=== PATIENT | female | born 1985 | race Two or more races ===

== ENCOUNTER 2023-09-28 10:04 | Inpatient (IN) | payer OTHER ==
[2023-09-28] MEDS ORDERED: SODIUM CHLORIDE 500 ML IV SCH ×2 (10:20→10:50)
[2023-09-28 11:45] LABS: BASO % 0.3 % (0-2.0); EOS % 0.1 % (0-4.5); HEMATOCRIT 36.4 % (32.4-45.2); HEMOGLOBIN 11.8 GM/dL (10.7-15.3); LYMPH % 6.3 % (8-40); MCH 29.3 pg (25.7-33.7); MCHC 32.4 g/dl (32.0-36.0); MEAN CELL VOLUME 90.4 fl (80-96); MEAN PLT VOLUME 9.1 fl (7.5-11.1); MONO % 6.5 % (3.8-10.2); NEUT % 86.8 % (42.8-82.8); PLATELET COUNT 308 10^3/uL (134-434); RBC 4.03 M/mm3 (3.60-5.2); RDW 15.8 % (11.6-15.6); WHITE BLOOD COUNT 12.3 K/mm3 (4.0-10.0)
[2023-09-28 11:53] LABS: INR 1.07 (0.83-1.09); PROTHROMBIN TIME (PATIENT) 12.4 SEC (9.7-13.0)
[2023-09-28 11:56] LABS: ACTIVATED PTT 29.9 SECONDS (25.2-36.5)
[2023-09-28 12:10] LABS: POTASSIUM 3.8 mmol/L (3.5-5.1)
[2023-09-28] MEDS ORDERED: TERBUTALINE SULFATE 1 MG/1 ML VIAL SQ ONE ×4 (12:10→13:45)
[2023-09-28 12:13] LABS: BLOOD UREA NITROGEN 3.8 mg/dL (7-18); CALCIUM 9.1 mg/dL (8.5-10.1)
[2023-09-28 12:16] LABS: CREATININE 0.5 mg/dL (0.55-1.3)
[2023-09-28 12:18] LABS: BILIRUBIN,TOTAL 0.8 mg/dL (0.2-1); TOT PROT 7.7 g/dl (6.4-8.2)
[2023-09-28] MEDS: MAGNESIUM SULFATE 20GM/500ML - 20 GM/500 ML INFUS.BAG IVPB SCH ×2 (14:00→23:30)
[2023-09-28] MEDS: DEXTROSE 5%-LACTATED RINGERS 1,000 ML IV SCH (14:00)
[2023-09-28] MEDS ORDERED: MAGNESIUM SULFATE 20GM/500ML - 20 GM/500 ML INFUS.BAG ONE ×2 (14:01→23:35)
[2023-09-28] MEDS ORDERED: PENICILLIN G POTASSIUM 20,000,000 (20Mm) UNITS VIAL IVPB ONE (14:02)
[2023-09-28] MEDS ORDERED: MAGNESIUM 4GM/H20 - 4 GM/100 ML IVPB IVPB SCH (14:15)
[2023-09-28] MEDS ORDERED: PENICILLIN G POTASSIUM 5,000,000 UNIT/250 ML BAG IVPB ONE (14:15)
[2023-09-28 14:21] LABS: POC NITRAZINE POS
[2023-09-28] MEDS ORDERED: PENICILLIN G POTASSIUM 5,000,000 PRE-DOCK IN NS 250 ML IVPB ONE (14:30)
[2023-09-28 15:21] VITALS: BMI 39.0
[2023-09-28] MEDS ORDERED: BETAMET ACET/BETAMET NA PH 30 MG/5 ML VIAL IM ONE (16:32)
[2023-09-28 16:42] LABS: EPI CELLS 7 /uL (0-25.1); HYALINE CASTS 0 /uL (0-3.1); PH,URINE 6.5 (5.0-8.0); URINE APPEARANCE CLEAR; URINE BACTERIA 2 /uL (0-1359); URINE BILIRUBIN NEGATIVE (NEGATIVE); URINE COLOR YELLOW; URINE GLUCOSE (UA) NEGATIVE (NEGATIVE); URINE KETONE 3+ (NEGATIVE); URINE LEUK ESTERASE NEGATIVE (NEGATIVE); URINE NITRITE NEGATIVE (NEGATIVE); URINE PROTEIN 1+ (NEGATIVE); URINE RBC 51 /uL (0-23.9); URINE WBC 6 /uL (0-25.8)
[2023-09-28] MEDS ORDERED: BETAMET ACET/BETAMET NA PH 30 MG/5 ML VIAL ONE (16:42)
[2023-09-28] MEDS: PENICILLIN G POTASSIUM 2,500,000 UNIT in SODIUM CHLORIDE 100 ML IVPB SCH ×2 (20:35→23:35)
[2023-09-29] MEDS: PENICILLIN G POTASSIUM 2,500,000 UNIT in SODIUM CHLORIDE 100 ML IVPB SCH ×4 (03:00→16:16)
[2023-09-29] MEDS ORDERED: amLODIPine BESYLATE 10 MG TABLET (FP) PO SCH (10:00)
[2023-09-29] MEDS ORDERED: MAGNESIUM SULFATE 20GM/500ML - 20 GM/500 ML INFUS.BAG ONE (10:13)
[2023-09-29] MEDS: MAGNESIUM SULFATE 20GM/500ML - 20 GM/500 ML INFUS.BAG IVPB SCH (12:45)
[2023-09-29 14:20] LABS: POC NITRAZINE NEG
[2023-09-29] MEDS ORDERED: NIFEdipine 10 MG CAPSULE (FP) PO SCH (16:00)
[2023-09-29] MEDS ORDERED: NIFEdipine 10 MG CAPSULE (FP) ONE (16:12)
[2023-09-29] MEDS: BETAMET ACET/BETAMET NA PH 30 MG/5 ML VIAL IM SCH ×2 (17:05→17:46)
[2023-09-29] MEDS: DEXTROSE 5%-LACTATED RINGERS 1,000 ML IV SCH (17:07)
[2023-09-29] MEDS: NIFEdipine 10 MG CAPSULE (FP) PO SCH (23:19)
[2023-09-30 02:07] VITALS: RESP 18
[2023-09-30] MEDS: NIFEdipine 10 MG CAPSULE (FP) PO SCH (09:30)
[2023-09-30 11:17] VITALS: BP 126/64; PULSE 93; TEMP 98.7
== END 2023-09-30 14:00 | disposition home or self-care (01) | DRG 831 ==
LOC: JDEL 10:04 → JLDR 13:45 → J3W 09-29 17:45
PROVIDERS: ADMIT Obstetrics & Gynecology Maternal & Fetal Medicine; ATTEND Obstetrics & Gynecology Maternal & Fetal Medicine
DX: O60.02 Preterm labor without delivery, second trimester (principal); O34.32 Maternal care for cervical incompetence, second trimester; O10.912 Unspecified pre-existing hypertension complicating pregnancy, second trimester; Z3A.27 27 weeks gestation of pregnancy
CPT/HCPCS: 36415; 59025; 80053; 81003; 83986-QW; 85025; 85610; 85730; 86780; 86850; 86900; 86901; 87081; 87086; 87491; 87591; 94660; 96372

== ENCOUNTER 2023-11-28 08:40 | Inpatient (IN) | payer OTHER ==
[2023-11-28] MEDS ORDERED: TERBUTALINE SULFATE 1 MG/1 ML VIAL SQ ONE (09:19)
[2023-11-28] MEDS: TERBUTALINE SULFATE 1 MG/1 ML VIAL SQ ONE (09:23)
[2023-11-28] MEDS: DEXTROSE 5%-LACTATED RINGERS 1,000 ML IV SCH (10:00)
[2023-11-28] MEDS ORDERED: FENTANYL/BUPIVACAINE/NS/PF - PCEA - 50 ML DISP.SYRIN EP ONE (10:09)
[2023-11-28] MEDS: FENTANYL/BUPIVACAINE/NS/PF - PCEA - 50 ML DISP.SYRIN EP SCH (10:20)
[2023-11-28] MEDS ORDERED: NALOXONE HCL 0.4 MG/ML VIAL IVPUSH PRN (10:28)
[2023-11-28 10:33] LABS: BASO % 0.7 % (0-2.0); EOS % 0.7 % (0-4.5); HEMATOCRIT 35.8 % (32.4-45.2); HEMOGLOBIN 11.2 GM/dL (10.7-15.3); LYMPH % 12.5 % (8-40); MCH 28.2 pg (25.7-33.7); MCHC 31.3 g/dl (32.0-36.0); MEAN PLT VOLUME 9.3 fl (7.5-11.1); MONO % 7.9 % (3.8-10.2); NEUT % 78.2 % (42.8-82.8); PLATELET COUNT 269 10^3/uL (134-434); RBC 3.98 M/mm3 (3.60-5.2); RDW 16.9 % (11.6-15.6); WHITE BLOOD COUNT 13.1 K/mm3 (4.0-10.0)
[2023-11-28 10:40] LABS: INR 1.01 (0.83-1.09); PROTHROMBIN TIME (PATIENT) 11.7 SEC (9.7-13.0)
[2023-11-28 10:42] LABS: ACTIVATED PTT 27.6 SECONDS (25.2-36.5)
[2023-11-28 10:53] VITALS: BMI 42.7
[2023-11-28] MEDS ORDERED: PENICILLIN G POTASSIUM 5,000,000 UNIT/250 ML BAG IVPB ONE (10:53)
[2023-11-28] MEDS: PENICILLIN G POTASSIUM 5,000,000 PRE-DOCK IN NS 250 ML IVPB ONE (11:00)
[2023-11-28] MEDS ORDERED: NIFEdipine 10 MG CAPSULE (FP) ONE (11:07)
[2023-11-28 11:09] LABS: POTASSIUM 3.7 mmol/L (3.5-5.1)
[2023-11-28] MEDS: NIFEdipine 10 MG CAPSULE (FP) PO ONE (11:10)
[2023-11-28 11:12] LABS: ALBUMIN 2.8 g/dl (3.4-5.0); BLOOD UREA NITROGEN 6.1 mg/dL (7-18); CALCIUM 9.3 mg/dL (8.5-10.1)
[2023-11-28 11:15] LABS: CREATININE 0.5 mg/dL (0.55-1.3)
[2023-11-28 11:17] LABS: BILIRUBIN,TOTAL 0.9 mg/dL (0.2-1); TOT PROT 7.3 g/dl (6.4-8.2)
[2023-11-28] MEDS: SODIUM CHLORIDE 1,000 ML IV STA (11:30)
[2023-11-28] MEDS ORDERED: LIDOCAINE HCL 1% PRESERVATIVE FREE - 30ML VIAL ONE (11:43)
[2023-11-28] MEDS ORDERED: OXYTOCIN 20 UNITS in 0.9% NS 20 UNIT/1,000 ML INFUS.BAG IV ONE (11:43)
[2023-11-28 12:03] LABS: HIV INTERPRETATION NEGATIVE (NEGATIVE)
[2023-11-28] MEDS: OXYTOCIN 20 UNITS in 0.9% NS 20 UNIT/1,000 ML INFUS.BAG IV SCH (12:20)
[2023-11-28] MEDS ORDERED: BENZOCAINE 28 GM HEMORRHOIDAL OINTMENT TP PRN (12:34)
[2023-11-28] MEDS ORDERED: WITCH HAZEL 50% (TUCKS) 40 PAD/JAR PAD TP PRN (12:34)
[2023-11-28] MEDS ORDERED: NIFEdipine 10 MG CAPSULE (FP) PO SCH (14:00)
[2023-11-28] MEDS ORDERED: PENICILLIN G POTASSIUM 20,000,000 (20Mm) UNITS VIAL IVPB SCH (14:05)
[2023-11-28 14:22] LABS: CORD BASE EXCESS -7.7 mmol/L (0-2); CORD HCO3 21.7 mmHg (20-29); CORD PCO2 58.6 mmHg (30-78); CORD pH 7.187 (7.14-7.44)
[2023-11-28 14:24] LABS: CORD HCO3 22.3 mmHg (20-29); CORD PCO2 58.3 mmHg (30-78); CORD pH 7.201 (7.14-7.44)
[2023-11-28] MEDS ORDERED: PENICILLIN G POTASSIUM 2,500,000 UNIT in SODIUM CHLORIDE 100 ML IVPB SCH (15:00)
[2023-11-29] MEDS: ACETAMINOPHEN 325 MG TABLET (FP) PO PRN (01:12)
[2023-11-29 07:16] LABS: BASO % 0.4 % (0-2.0); EOS % 0.4 % (0-4.5); HEMATOCRIT 27.9 % (32.4-45.2); LYMPH % 12.2 % (8-40); MCH 29.3 pg (25.7-33.7); MCHC 32.4 g/dl (32.0-36.0); MEAN CELL VOLUME 90.4 fl (80-96); MEAN PLT VOLUME 9.5 fl (7.5-11.1); MONO % 11.8 % (3.8-10.2); NEUT % 75.2 % (42.8-82.8); PLATELET COUNT 207 10^3/uL (134-434); RBC 3.09 M/mm3 (3.60-5.2); RDW 17.1 % (11.6-15.6); WHITE BLOOD COUNT 12.8 K/mm3 (4.0-10.0)
[2023-11-29] MEDS: NIFEdipine E.R. 30 MG TABLET PO SCH (10:44)
[2023-11-29] MEDS: IBUPROFEN 600 MG TABLET (FP) PO PRN (10:55)
[2023-12-01 05:31] VITALS: RESP 18
[2023-12-01 09:05] VITALS: BP 152/89; PULSE 108; TEMP 98
== END 2023-12-01 13:30 | disposition home or self-care (01) | DRG 805 ==
LOC: JDEL 08:40 → JLDR 09:00 → J3W 15:00
PROVIDERS: ADMIT Obstetrics & Gynecology Maternal & Fetal Medicine; ATTEND Obstetrics & Gynecology Maternal & Fetal Medicine
PROC: 10E0XZZ Delivery of Products of Conception, External Approach (ICD-10-PCS; principal; 2023-11-28)
DX: O42.113 Preterm premature rupture of membranes, onset of labor more than 24 hours following rupture, third trimester (principal); O34.33 Maternal care for cervical incompetence, third trimester; Z37.0 Single live birth; O10.92 Unspecified pre-existing hypertension complicating childbirth; Z3A.35 35 weeks gestation of pregnancy
CPT/HCPCS: 36415; 36600; 59025; 80053; 82803; 85025; 85610; 85730; 86780; 86850; 86900; 86901; 87081; 87389; 87491; 87591; 88307-TC